=== PATIENT | male | born 1995 | race African-American/Black ===

== ENCOUNTER 2018-12-28 21:20 | Emergency (ER) | payer MEDICAID ==
[~2018-12-28] VITALS: Ht 182.9 cm; Wt 77.0 kg
[2018-12-29] MEDS ORDERED: MORPHINE SULFATE 4 MG/ML CPJ (NOT FOR IM USE) IV ONE
[2018-12-29] MEDS ORDERED: TETANUS, DIPHTHERIA, PERTUSSIS VAC/PF 0.5ML (>7YR OLD) IM ONE
[2018-12-29] MEDS ORDERED: BACITRACIN ZINC OINT UDPKT TOP ONE
[2018-12-29] MEDS ORDERED: ONDANSETRON HCL 4MG/2ML INJ IV ONE
[2018-12-29 02:51] VITALS: BP 121/81
== END 2018-12-29 02:58 | disposition home or self-care (01) ==
LOC: ER 21:20
DX: S31.21XA Laceration without foreign body of penis, initial encounter (principal); V19.9XXA Pedal cyclist (driver) (passenger) injured in unspecified traffic accident, initial encounter; Y93.55 Activity, bike riding; Y92.9 Unspecified place or not applicable
CPT/HCPCS: 12001; 76870; 90471; 90715; 93976; 96374; 96375; 99284; J2270; J2405; Z7610